=== PATIENT | female | born 1945 | race Caucasian/White ===

== ENCOUNTER 2017-09-05 14:25 | Emergency (ER) | payer MEDICARE, OTHER ==
[2017-09-05] MEDS ORDERED: SODIUM CHLORIDE 0.9% 1,000 ML IV STA ×2 (15:09)
--- NOTE | 2017-09-05 15:13 | ED ---
Nausea/Vomiting/Diarrhea HPI - General Chief complaint: Nausea/Vomiting/Diarrhea Stated complaint: Vomiting/Dizzy Time Seen by Provider: 09/05/17 15:00 Source: patient, family, RN notes reviewed Mode of arrival: wheelchair Limitations: no limitations - History of Present Illness Initial comments: This is a 72-year-old female who presents with complaints of nausea and dizziness. Just complains of neck supple headache. She states she does have a right upper tooth implant done in [place] and states that she threw up on the [employer] in a motor vehicle over. She was given amoxicillin today 4 as well as levodopa. She's not sure what the actual cause is that she still feeling very nauseated and dizzy. She denies any chest pain palpitations or other symptoms. No other modifying factors. She has had previous implants with no reactions like this. MD complaint: nausea, other - Related Data Home Medications Medication Instructions Recorded Confirmed Candesartan/Hydrochlorothiazid 1 tab PO DAILY 10/06/15 09/05/17 [Candesartan-Hctz 16-12.5 mg Tb] Atorvastatin [Lipitor] 40 mg PO DAILY 01/22/16 09/05/17 Amoxicillin 2,000 mg PO ONCE PRN 09/05/17 09/05/17 Carbidopa-Levodopa 25-100 mg 1 tab PO QID 09/05/17 09/05/17 [Sinemet 25-100] Metoprolol Tartrate [Lopressor] 25 mg PO BID 09/05/17 09/05/17 Allergies Allergy/AdvReac Type Severity Reaction Status Date / Time adhesive tape Allergy Rash/Hives Verified 09/05/17 15:05 Review of Systems ROS Statement: Those systems with pertinent positive or pertinent negative responses have been documented in the HPI. ROS Other: All systems not noted in ROS Statement are negative. Past Medical History Past Medical History: Chest Pain / Angina, Hyperlipidemia, Hypertension, Myocardial Infarction (PR) Additional Past Medical History / Comment(s): States stress test abnormal. Parkinsons History of Any Multi-Drug Resistant Organisms: None Reported Past Surgical History: Heart Catheterization With Stent, Hysterectomy Additional Past Surgical History / Comment(s): ? vaginal prolapse post hyst. in 2001. Past Anesthesia/Blood Transfusion Reactions: No Reported Reaction Past Psychological History: No Psychological Hx Reported Smoking Status: Former smoker Past Alcohol Use History: Occasional Past Drug Use History: None Reported - Past Family History Mother Family Medical History: Cancer Additional Family Medical History / Comment(s): Stomach Father Family Medical History: Coronary Artery Disease (CAD) Brother(s) Family Medical History: Coronary Artery Disease (CAD) General Exam - General Exam Comments Initial Comments: This is a well-developed well-nourished awake alert oriented 3 female Limitations: no limitations General appearance: alert, in no apparent distress Head exam: Present: atraumatic, normocephalic, normal inspection, other (Mild tenderness palpation of the occipital scalp and upper paraspinous musculature.) Eye exam: Present: normal appearance, PERRL, EOMI. Absent: scleral icterus, conjunctival injection, periorbital swelling ENT exam: Present: mucous membranes moist, other (No active bleeding there is some residual blood implant sided to the right upper gumline.) Neck exam: Present: normal inspection. Absent: tenderness, meningismus, lymphadenopathy Respiratory exam: Present: normal lung sounds bilaterally. Absent: respiratory distress, wheezes, rales, rhonchi, stridor Cardiovascular Exam: Present: regular rate, normal rhythm, normal heart sounds. Absent: systolic murmur, diastolic murmur, rubs, gallop, clicks GI/Abdominal exam: Present: soft, normal bowel sounds. Absent: distended, tenderness, guarding, rebound, rigid Extremities exam: Present: normal inspection, full ROM, normal capillary refill. Absent: tenderness, pedal edema, joint swelling, calf tenderness Back exam: Present: normal inspection Neurological exam: Present: alert, oriented X3, CN II-XII intact Psychiatric exam: Present: normal affect, normal mood Skin exam: Present: warm, dry, intact, normal color. Absent: rash Course Vital Signs 09/05/17 09/05/17 14:40 15:40 Temperature 98.2 F Pulse Rate 98 94 Respiratory 18 18 Rate Blood Pressure 169/84 185/87 O2 Sat by Pulse 94 L 97 Oximetry Medical Decision Making - Medical Decision Making Patient is feeling much improved at this time and will be discharged she does request that she be able take her medication which should be fine. No further symptoms - Lab Data Result diagrams: 09/05/17 15:30 09/05/17 15:30 Lab Results 09/05/17 09/05/17 09/05/17 Range/Units 15:30 15:30 15:30 WBC 8.5 (3.8-10.6) k/uL RBC 4.00 (3.80-5.40) m/uL Hgb 12.3 (11.4-16.0) gm/dL Hct 36.8 (34.0-46.0) % MCV 92.1 (80.0-100.0) fL MCH 30.7 (25.0-35.0) pg MCHC 33.4 (31.0-37.0) g/dL RDW 13.2 (11.5-15.5) % Plt Count 299 (150-450) k/uL Neutrophils % 84 % Lymphocytes % 10 % Monocytes % 5 % Eosinophils % 0 % Basophils % 0 % Neutrophils # 7.2 (1.3-7.7) k/uL Lymphocytes # 0.8 L (1.0-4.8) k/uL Monocytes # 0.4 (0-1.0) k/uL Eosinophils # 0.0 (0-0.7) k/uL Basophils # 0.0 (0-0.2) k/uL Sodium 137 (137-145) mmol/L Potassium 4.1 (3.5-5.1) mmol/L Chloride 103 (98-107) mmol/L Carbon Dioxide 22 (22-30) mmol/L Anion Gap 12 mmol/L BUN 18 H (7-17) mg/dL Creatinine 0.80 (0.52-1.04) mg/dL Est GFR (CKD-EPI)AfAm 85 (>60 ml/min/1.73 sqM) Est GFR (CKD-EPI)NonAf 74 (>60 ml/min/1.73 sqM) Glucose 137 H (74-99) mg/dL POC Glucose (mg/dL) (75-99) mg/dL POC Glu Calender Runner ID Calcium 9.9 (8.4-10.2) mg/dL Magnesium 1.8 (1.6-2.3) mg/dL Total Bilirubin 0.5 (0.2-1.3) mg/dL AST 29 (14-36) U/L ALT 15 (9-52) U/L Alkaline Phosphatase 61 (38-126) U/L Total Creatine Kinase 107 (30-135) U/L CK-MB (CK-2) 0.9 (0.0-2.4) ng/mL CK-MB (CK-2) Rel Index 0.8 Troponin I <0.012 (0.000-0.034) ng/mL Total Protein 7.2 (6.3-8.2) g/dL Albumin 4.6 (3.5-5.0) g/dL Amylase 64 (30-110) U/L Lipase 127 (23-300) U/L Urine Color Urine Appearance (Clear) Urine pH (5.0-8.0) Ur Specific Beatrice (1.001-1.035) Urine Protein (Negative) Urine Glucose (UA) (Negative) Urine Ketones (Negative) Urine Blood (Negative) Urine Nitrite (Negative) Urine Bilirubin (Negative) Urine Urobilinogen (<2.0) mg/dL Ur Leukocyte Esterase (Negative) Urine RBC (0-5) /hpf Urine WBC (0-5) /hpf Ur Squamous Epith Cells (0-4) /hpf Amorphous Sediment (None) /hpf Hyaline Casts (0-2) /lpf Urine Mucus (None) /hpf 09/05/17 09/05/17 Range/Units 15:32 16:00 WBC (3.8-10.6) k/uL RBC (3.80-5.40) m/uL Hgb (11.4-16.0) gm/dL Hct (34.0-46.0) % MCV (80.0-100.0) fL MCH (25.0-35.0) pg MCHC (31.0-37.0) g/dL RDW (11.5-15.5) % Plt Count (150-450) k/uL Neutrophils % % Lymphocytes % % Monocytes % % Eosinophils % % Basophils % % Neutrophils # (1.3-7.7) k/uL Lymphocytes # (1.0-4.8) k/uL Monocytes # (0-1.0) k/uL Eosinophils # (0-0.7) k/uL Basophils # (0-0.2) k/uL Sodium (137-145) mmol/L Potassium (3.5-5.1) mmol/L Chloride (98-107) mmol/L Carbon Dioxide (22-30) mmol/L Anion Gap mmol/L BUN (7-17) mg/dL Creatinine (0.52-1.04) mg/dL Est GFR (CKD-EPI)AfAm (>60 ml/min/1.73 sqM) Est GFR (CKD-EPI)NonAf (>60 ml/min/1.73 sqM) Glucose (74-99) mg/dL POC Glucose (mg/dL) 146 H (75-99) mg/dL POC Glu Calender Runner ID Cinthia Taveras Calcium (8.4-10.2) mg/dL Magnesium (1.6-2.3) mg/dL Total Bilirubin (0.2-1.3) mg/dL AST (14-36) U/L ALT (9-52) U/L Alkaline Phosphatase (38-126) U/L Total Creatine Kinase (30-135) U/L CK-MB (CK-2) (0.0-2.4) ng/mL CK-MB (CK-2) Rel Index Troponin I (0.000-0.034) ng/mL Total Protein (6.3-8.2) g/dL Albumin (3.5-5.0) g/dL Amylase (30-110) U/L Lipase (23-300) U/L Urine Color Yellow Urine Appearance Clear (Clear) Urine pH 5.0 (5.0-8.0) Ur Specific Beatrice 1.019 (1.001-1.035) Urine Protein Negative (Negative) Urine Glucose (UA) Negative (Negative) Urine Ketones 2+ H (Negative) Urine Blood Trace H (Negative) Urine Nitrite Negative (Negative) Urine Bilirubin Negative (Negative) Urine Urobilinogen <2.0 (<2.0) mg/dL Ur Leukocyte Esterase Trace H (Negative) Urine RBC 1 (0-5) /hpf Urine WBC 3 (0-5) /hpf Ur Squamous Epith Cells 7 H (0-4) /hpf Amorphous Sediment Rare H (None) /hpf Hyaline Casts 13 H (0-2) /lpf Urine Mucus Rare H (None) /hpf - EKG Data -: EKG Interpreted by Me EKG shows normal: sinus rhythm (Sinus rhythm rate 90. Interval 176 QRS duration 88 QT since QTC 386/472 voltage criteria for LVH nonspecific ST configuration) - Radiology Data Radiology results: report reviewed (I did review the imaging and report no acute findings), image reviewed Disposition Clinical Impression: Dehydration, Dizziness, Nausea Disposition: HOME SELF-CARE Condition: Good Instructions: Acute Nausea and Vomiting (ED), Dizziness (ED) Is patient prescribed a controlled substance at d/c from ED?: No Referrals: Lokesh Magallon DO [Primary Care Provider] - 1-2 days
[2017-09-05 15:34] LABS: Glucose,Whole Blood 146 mg/dL (75-99)
[2017-09-05 16:02] LABS: Albumin 4.6 g/dL (3.5-5.0); Calcium 9.9 mg/dL (8.4-10.2); Magnesium 1.8 mg/dL (1.6-2.3); Potassium 4.1 mmol/L (3.5-5.1); Total Bilirubin 0.5 mg/dL (0.2-1.3); Total Protein 7.2 g/dL (6.3-8.2)
[2017-09-05 16:04] LABS: Basophils % (A) 0 %; Eosinophils % (A) 0 %; HCT 36.8 % (34.0-46.0); HGB 12.3 gm/dL (11.4-16.0); Lymphocytes # (A) 0.8 k/uL (1.0-4.8); Lymphocytes % (A) 10 %; MCH 30.7 pg (25.0-35.0); MCHC 33.4 g/dL (31.0-37.0); MCV 92.1 fL (80.0-100.0); Mean Platelet Volume 6.8; Monocytes # (A) 0.4 k/uL (0-1.0); Monocytes % (A) 5 %; Neutrophils # (A) 7.2 k/uL (1.3-7.7); Neutrophils % (A) 84 %; Platelet Count 299 k/uL (150-450); RDW 13.2 % (11.5-15.5); WBC 8.5 k/uL (3.8-10.6)
[2017-09-05 16:17] LABS: Amorphous Sediment,Urine Rare /hpf; Appearance,Urine Clear (Clear); Bilirubin,Urine Negative (Negative); Blood,Urine Trace (Negative); Color,Urine Yellow; Glucose,Urine (UA) Negative (Negative); Hyaline Casts,Urine 13 /lpf (0-2); Ketones,Urine 2+ (Negative); Leukocyte Esterase,Urine Trace (Negative); Mucus,Urine Rare /hpf; Nitrite,Urine Negative (Negative); Protein,Urine Negative (Negative); RBC,Urine 1 /hpf (0-5); Specific Gravity,Urine 1.019 (1.001-1.035); Squamous Epithelial Cell,Urine 7 /hpf (0-4); Urobilinogen,Urine <2.0 mg/dL (<2.0); WBC,Urine 3 /hpf (0-5)
[2017-09-05 16:22] LABS: Creatine Kinase 107 U/L (30-135)
--- NOTE | 2017-09-05 16:23 | CT ---
EXAMINATION TYPE: CT brain wo con DATE OF EXAM: 09/05/2017 COMPARISON: 01/22/2016 INDICATION: Vomiting and dizziness DLP: 929.5 mGycm, Automated exposure control for dose reduction was used. CONTRAST: None CT of the brain is performed utilizing 3 mm thick sections through the posterior fossa and 3 mm thick sections through the remaining calvarium. Study is performed within 24 hours of arrival to the hosp [facility]. No abnormal hyperdensity is present to suggest an acute intracranial hemorrhage. No mass lesion is evident. No acute infarcts are evident. Ventricles and sulci are appropriate for the patient age. Paranasal sinuses and mastoid air cells within the [id number] are clear. IMPRESSIONS: 1. Normal CT Brain
--- NOTE | 2017-09-05 16:33 | XR ---
EXAMINATION TYPE: XR chest 2V DATE OF EXAM: 09/05/2017 COMPARISON: None INDICATION: Cough vomiting dizziness TECHNIQUE: Frontal and lateral views of the chest are obtained. FINDINGS: The heart size is normal. The pulmonary vasculature is normal. The lungs are clear. IMPRESSION: 1. No acute pulmonary process.
[2017-09-05 16:35] LABS: Creatine Kinase MB 0.9 ng/mL (0.0-2.4); Troponin I <0.012 ng/mL (0.000-0.034)
[2017-09-05 17:44] VITALS: BP 172/95; PULSE 90; RESP 16; TEMP 97.8
== END 2017-09-05 17:43 | disposition home or self-care (01) ==
LOC: EC 14:25
DX: E86.0 Dehydration (principal); R11.0 Nausea; R51 Headache; E78.5 Hyperlipidemia, unspecified; I10 Essential (primary) hypertension; G20 Parkinson's disease; I25.2 Old myocardial infarction; Z87.891 Personal history of nicotine dependence; Z79.899 Other long term (current) drug therapy; Z91.048 Other nonmedicinal substance allergy status; Z86.79 Personal history of other diseases of the circulatory system; Z96.5 Presence of tooth-root and mandibular implants
CPT/HCPCS: 36415; 70450; 71046; 80053; 81001; 82150; 82550; 82553; 83690; 83735; 84484; 85025; 93005; 96360; 96361; 99284

== ENCOUNTER → 2018-06-22 | Outpatient (CLI) | payer MEDICARE, OTHER ==
[~2018-06-22] MED LIST: IODINE/POTASS IOD (LUGOLS) 8 ML BTL TOPICAL ONE
--- NOTE | 2018-06-23 13:07 | NM ---
EXAMINATION TYPE: NM DatScan Brain SPECT DATE OF EXAM: 06/22/2018 COMPARISON: CT brain September 05, 2017 tremor HISTORY: Tremor. TECHNIQUE: 10 drops of Lugol's solution was administered 1 hour prior to injection as a thyroid bloc hannah agent. After the administration of 4.37 mCi I-123 Ioflupane DaTscan. Images obtained 3 hours p ost injection. SPECT images of the brain were acquired with axial and coronal reconstructions. FINDINGS: The DaTSCAN demonstrates reduced uptake of tracer throughout the striata. This appearance is consistent with the bilateral loss of the pre-synaptic dopaminergic terminals. IMPRESSION: This abnormal appearance is consistent with a diagnosis of either idiopathic PD or PS.
== END | disposition home or self-care (01) ==
LOC: RADNMMAIN 11:06
PROVIDERS: ATTEND Psychiatry & Neurology Neurology
DX: R94.02 Abnormal brain scan (principal); G25.0 Essential tremor
CPT/HCPCS: 78607; A9584

== ENCOUNTER 2019-04-16 10:27 | Emergency (ER) | payer MEDICARE, OTHER ==
[2019-04-16] MEDS ORDERED: SODIUM CHLORIDE 0.9% 1,000 ML IV STA (11:09)
--- NOTE | 2019-04-16 11:16 | ED ---
General Adult HPI - General Chief complaint: Recheck/Abnormal Lab/Rx Stated complaint: Hypertension/anxiety Time Seen by Provider: 04/16/19 11:00 Source: patient, EMS, RN notes reviewed Mode of arrival: EMS Limitations: no limitations - History of Present Illness Initial comments: Patient is a pleasant 74-year-old female presenting to the emergency department with complaints of headache. Headaches have been occurring almost daily for the past couple of weeks. Patient omits to feeling anxious. Patient believes her headaches are related to her dopamine levels being low because when she takes her L-dopa for Parkinson's her symptoms seemed to improve. Headaches usually last less than 1 hour. Headache started fairly quick and are fairly severe. Headaches are posterior. No visual changes. No speech changes. No confusion. No weakness or loss of sensation. No coordination problems. - Related Data Home Medications Medication Instructions Recorded Confirmed Atorvastatin [Lipitor] 40 mg PO DAILY 01/22/16 04/16/19 Carbidopa-Levodopa 25-100 mg 1 tab PO QID 09/05/17 04/16/19 [Sinemet 25-100] Hydrochlorothiazide 12.5 mg PO DAILY 04/16/19 04/16/19 Losartan Potassium [Cozaar] 100 mg PO DAILY 04/16/19 04/16/19 Allergies Allergy/AdvReac Type Severity Reaction Status Date / Time adhesive tape Allergy Rash/Hives Verified 04/16/19 10:40 Review of Systems ROS Statement: Those systems with pertinent positive or pertinent negative responses have been documented in the HPI. ROS Other: All systems not noted in ROS Statement are negative. Constitutional: Denies: fever Eyes: Denies: eye pain ENT: Denies: ear pain Respiratory: Denies: cough Cardiovascular: Denies: chest pain Endocrine: Denies: fatigue Gastrointestinal: Denies: abdominal pain Genitourinary: Denies: dysuria Musculoskeletal: Denies: back pain Skin: Denies: rash Neurological: Reports: headache. Denies: weakness, numbness, paresthesias, confusion, abnormal gait, vertigo Past Medical History Past Medical History: Chest Pain / Angina, Hyperlipidemia, Hypertension, Myocardial Infarction (SD) Additional Past Medical History / Comment(s): States stress test abnormal. Parkinsons History of Any Multi-Drug Resistant Organisms: None Reported Past Surgical History: Heart Catheterization With Stent, Hysterectomy Additional Past Surgical History / Comment(s): ? vaginal prolapse post hyst. in 2001. Past Anesthesia/Blood Transfusion Reactions: No Reported Reaction Past Psychological History: No Psychological Hx Reported Smoking Status: Former smoker Past Alcohol Use History: Occasional Past Drug Use History: None Reported - Past Family History Mother Family Medical History: Cancer Additional Family Medical History / Comment(s): Stomach Father Family Medical History: Coronary Artery Disease (CAD) Brother(s) Family Medical History: Coronary Artery Disease (CAD) General Exam Limitations: no limitations General appearance: alert, in no apparent distress Head exam: Present: normocephalic Eye exam: Present: normal appearance, PERRL, EOMI. Absent: nystagmus ENT exam: Present: normal oropharynx Neck exam: Present: normal inspection Respiratory exam: Present: normal lung sounds bilaterally Cardiovascular Exam: Present: regular rate, normal rhythm GI/Abdominal exam: Present: soft. Absent: tenderness Extremities exam: Present: normal inspection Neurological exam: Present: alert, oriented X3, CN II-XII intact. Absent: motor sensory deficit Expanded Neurological exam: Present: protecting the airway Patient oriented to: Present: person, place, time Speech: Present: fluid speech Cranial nerves: EOM's Intact: Normal, Facial Sensation: Normal Sensory exam: Upper Extremity Light Touch: Normal, Lower Extremity Light Touch: Normal Motor strength exam: RUE: 5, LUE: 5, RLE: 5, LLE: 5 Eye Response: (4) open spontaneously Motor Response: (6) obeys commands Verbal Response: (5) oriented Psychiatric exam: Present: normal affect, normal mood Skin exam: Present: normal color Course Vital Signs 04/16/19 04/16/19 04/16/19 10:34 11:15 11:43 Temperature 98.6 F Pulse Rate 71 65 66 Respiratory 20 18 18 Rate Blood Pressure 153/83 189/87 140/89 O2 Sat by Pulse 96 95 96 Oximetry 04/16/19 14:13 Temperature 98.7 F Pulse Rate 68 Respiratory 20 Rate Blood Pressure 172/89 O2 Sat by Pulse 98 Oximetry Medical Decision Making - Medical Decision Making Patient reevaluated and resting comfortably in bed. Blood pressure 186/88. Patient and family updated on results and need for follow-up. - Lab Data Result diagrams: 04/16/19 10:49 04/16/19 10:49 Lab Results 0304/16/19 04/16/19 Range/Units 10:49 10:49 10:49 WBC 4.0 (3.8-10.6) k/uL RBC 3.79 L (3.80-5.40) m/uL Hgb 11.7 (11.4-16.0) gm/dL Hct 35.0 (34.0-46.0) % MCV 92.4 (80.0-100.0) fL MCH 31.0 (25.0-35.0) pg MCHC 33.5 (31.0-37.0) g/dL RDW 12.7 (11.5-15.5) % Plt Count 255 (150-450) k/uL Neutrophils % 75 % Lymphocytes % 16 % Monocytes % 5 % Eosinophils % 2 % Basophils % 1 % Neutrophils # 3.0 (1.3-7.7) k/uL Lymphocytes # 0.6 L (1.0-4.8) k/uL Monocytes # 0.2 (0-1.0) k/uL Eosinophils # 0.1 (0-0.7) k/uL Basophils # 0.0 (0-0.2) k/uL PT 10.1 (9.0-12.0) sec INR 1.0 (<1.2) APTT 23.0 (22.0-30.0) sec Sodium 135 L (137-145) mmol/L Potassium 4.0 (3.5-5.1) mmol/L Chloride 103 (98-107) mmol/L Carbon Dioxide 25 (22-30) mmol/L Anion Gap 7 mmol/L BUN 22 H (7-17) mg/dL Creatinine 1.01 (0.52-1.04) mg/dL Est GFR (CKD-EPI)AfAm 63 (>60 ml/min/1.73 sqM) Est GFR (CKD-EPI)NonAf 55 (>60 ml/min/1.73 sqM) Glucose 102 H (74-99) mg/dL Calcium 9.1 (8.4-10.2) mg/dL Total Bilirubin 0.5 (0.2-1.3) mg/dL AST 21 (14-36) U/L ALT <6 (4-34) U/L Alkaline Phosphatase 62 (38-126) U/L Total Protein 6.5 (6.3-8.2) g/dL Albumin 3.8 (3.5-5.0) g/dL - Radiology Data Radiology results: report reviewed (Computed tomography scan of the brain shows no acute intercranial hemorrhage. Old lacunar injury. Atrophy. CT angiogram shows estimated near 80% stenosis right carotid. Nonvisualization left posterior cerebral artery which could be congenital or complete occlusion.) Disposition Clinical Impression: Hypertension, Headache Disposition: HOME SELF-CARE Condition: Stable Instructions (If sedation given, give patient instructions): Acute Headache (ED), Hypertension (ED) Additional Instructions: Please follow-up with primary care physician as well as Dr. Disla this week. Also follow-up with Dr. Todd in the next few days, number provided. Return for weakness, confusion, increased pain, uncontrolled blood pressure, worsening symptoms or other concerns. Is patient prescribed a controlled substance at d/c from ED?: No Referrals: Parker Magallon MD [Primary Care Provider] - 1-2 days Lily Todd MD [REFERRING] - 1-2 days Henrry Disla MD [STAFF PHYSICIAN] - 1-2 days Time of Disposition: 14:21
[2019-04-16 11:34] LABS: Basophils % (A) 1 %; Eosinophils # (A) 0.1 k/uL (0-0.7); Eosinophils % (A) 2 %; HGB 11.7 gm/dL (11.4-16.0); Lymphocytes # (A) 0.6 k/uL (1.0-4.8); Lymphocytes % (A) 16 %; MCHC 33.5 g/dL (31.0-37.0); MCV 92.4 fL (80.0-100.0); Mean Platelet Volume 7.3; Monocytes # (A) 0.2 k/uL (0-1.0); Monocytes % (A) 5 %; Neutrophils % (A) 75 %; Platelet Count 255 k/uL (150-450); RBC 3.79 m/uL (3.80-5.40); RDW 12.7 % (11.5-15.5)
[2019-04-16 11:43] LABS: ALT <6 U/L (4-34); AST 21 U/L (14-36); African American GFR (CKD) 63 (>60 ml/min/1.73 sqM); Albumin 3.8 g/dL (3.5-5.0); Alkaline Phosphatase 62 U/L (38-126); Anion Gap 7 mmol/L; Blood Urea Nitrogen 22 mg/dL (7-17); Calcium 9.1 mg/dL (8.4-10.2); Carbon Dioxide 25 mmol/L (22-30); Chloride 103 mmol/L (98-107); Glucose 102 mg/dL (74-99); Non-African American GFR(CKD) 55 (>60 ml/min/1.73 sqM); Sodium 135 mmol/L (137-145); Total Bilirubin 0.5 mg/dL (0.2-1.3); Total Protein 6.5 g/dL (6.3-8.2)
[2019-04-16 12:13] LABS: Prothrombin Time 10.1 sec (9.0-12.0)
--- NOTE | 2019-04-16 13:30 | CT ---
EXAMINATION TYPE: CT brain wo con DATE OF EXAM: 04/16/2019 COMPARISON: 09/05/2017 HISTORY: DAVIDSON, Hypertension CT DLP: 1096.8 mGycm Automated exposure control for dose reduction was used. TECHNIQUE: CT scan of the head is performed without contrast. FINDINGS: There is no acute intracranial hemorrhage or midline shift identified. There is diffuse v entricular and sulcal prominence consistent with diffuse age-related cerebral atrophy. There is an ol d lacunar injury of the right lentiform nucleus. This is CSF attenuated indicating chronicity however developed in the interim from the prior of 09/05/2017. There is low-attenuation in the periventricula r white matter consistent with chronic small vessel ischemic change. The globes are intact and the v isualized sinuses are clear. Numerous cartilaginous calcifications are incidentally noted of the ear s. There is atherosclerosis of the intracranial vasculature. IMPRESSION: No acute intracranial hemorrhage or midline shift. 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 There is diffuse age-related cerebral atrophy and chronic small vessel ischemic change noted.
--- NOTE | 2019-04-16 13:39 | CT ---
EXAMINATION TYPE: CT angio head neck DATE OF EXAM: 04/16/2019 HISTORY: DAVIDSON, Hypertension COMPARISON: NONE CT DLP: 395.1 mGycm. Automated Exposure Control for Dose Reduction was Utilized. TECHNIQUE: CTA scan of the head and neck are performed with IV Contrast, patient injected with 65 mL of Isovue 370, axial images are obtained, coronal and sagittal reformatted images are reviewed. Thre e-D reconstructed images are created on an independent workstation and reviewed. FINDINGS: Carotid/Vascular Structures: Mild mixed plaque in the aortic arch. Bovine-type arch which is normal v ariant. Right common carotid artery shows normal origin from the right brachiocephalic artery. There is focal severe calcified plaque right carotid bulb extending into proximal internal carotid artery. Presence of significant focal calcified plaque makes accurate evaluation of narrowing suboptimal but there is significant stenosis likely present. Luminal diameter measured narrowed to 1.5 mm raw data s lice 277 with reconstitution to 6.7 mm superior to this. Remainder right internal carotid artery show s moderate calcified plaque supraclinoid segment without additional significant stenosis. Patent righ t external carotid artery without significant plaque or stenosis. Tortuous course to left common carotid artery without significant plaque or stenosis. More prominent moderate peripheral calcified plaque left carotid bulb extending into proximal internal carotid arter y with stenosis under 50% thought present. Patent left external carotid artery without significant pl aque or stenosis. [id number] calcified plaque supraclinoid segment without significant stenosis . Codominant vertebrobasilar system patent to basilar artery junction. Mild peripheral plaque in the ve rtebral arteries. There is nonvisualized left posterior cerebral artery or posterior communicating ar tania. Right side is patent. Hypoplastic right posterior indicating artery is noted. No aneurysm is ev ident. Anterior circulation shows hypoplastic anterior communicating artery. No significant focal liu nosis or aneurysmal change is present. Other: Levoconvex scoliosis Centered upper to mid thoracic spine. Punctate densities near both ears of uncertain etiology possible skin or superficial foreign bodies. Correlate clinically. IMPRESSION: 1. Focal significant calcified plaque right carotid bulb extending into proximal internal carotid art brittany causing stenosis estimated or measured near 80%. 2. Nonvisualized left posterior cerebral artery and communicating artery consistent with congenital a bsence or complete occlusion. No prior CT or MRA studies at this institution to correlate. Above results communicated to ordering physician via telephone at time of dictation.
[2019-04-16 14:15] VITALS: RESP 20
[2019-04-16] MEDS ORDERED: HYDROCHLOROTHIAZIDE 12.5 MG CAP PO STA (14:18)
[2019-04-16 15:17] VITALS: BP 180/78; PULSE 64; TEMP 98.4
== END 2019-04-16 15:14 | disposition home or self-care (01) ==
LOC: EC 10:27
DX: I10 Essential (primary) hypertension (principal); R51 Headache; E78.5 Hyperlipidemia, unspecified; I25.2 Old myocardial infarction; G20 Parkinson's disease; Z79.899 Other long term (current) drug therapy; Z91.048 Other nonmedicinal substance allergy status; Z95.5 Presence of coronary angioplasty implant and graft; Z87.891 Personal history of nicotine dependence; Z82.49 Family history of ischemic heart disease and other diseases of the circulatory system
CPT/HCPCS: 36415; 80053; 85025; 85610; 85730; 70496; 70450; 70498; 99284; 96360; 96361 ×2; Q9967